=== PATIENT | female | born 1955 | race Caucasian/White ===

== ENCOUNTER 2021-04-03 08:51 | Outpatient (CLI) | payer BC ==
[2021-04-03 21:41] LABS: SARS-CoV-2 PCR by NAA Not Detected (NotDetected)
== END 2021-04-03 08:52 | disposition home or self-care (01) ==
LOC: CSHLAB 08:51
PROVIDERS: ATTEND Internal Medicine
DX: Z20.822 Contact with and (suspected) exposure to COVID-19 (principal)
CPT/HCPCS: U0003; U0005

== ENCOUNTER 2023-01-02 08:52 | Outpatient (CLI) | payer OTHER | END 2023-01-02 08:53 | disposition home or self-care (01) | LOC: CSHCP 08:52 | PROVIDERS: ATTEND Internal Medicine | DX: J44.9 Chronic obstructive pulmonary disease, unspecified (principal) | CPT/HCPCS: 94060; 94726; 94729; 94760 ==